=== PATIENT | male | born 1945 | race Hispanic/Latino ===

== ENCOUNTER → 2018-05-10 | Outpatient (CLI) | payer MEDICARE ==
[~2018-05-10] MED LIST: DOXAZOSIN MESYLA4 MG PO; FINASTERIDE5 MG PO; LEVOTHYROXINE88 MCG PO; SIMVASTATIN20 MG PO; ZETIA10 MG PO
--- NOTE | 2018-05-10 13:58 | Diagnostic Imaging Report ---
PROCEDURE: SOFT TISSUE HEAD/NECK US COMPARISON: None. INDICATIONS:Localized Swelling of Neck TECHNIQUE: Transverse and longitudinal jones-scale sonographic images and Doppler images of the neck were performed to evaluate the area of clinical concern. FINDINGS: Focused ultrasound of the soft tissues of the neck was performed at the area of clinical concern. No evidence of masses or lymphadenopathy in the submandibular region, bilateral neck, or thyroid gland. CONCLUSION: No sonographic abnormality identified in the neck at the area of clinical concern. Dictated by: DORIS DAWSON M.D. on 05/10/2018 at 14:05 Electronically approved by: DORIS DAWSON M.D. on 05/10/2018 at 14:05
== END ==
LOC: US 13:09
DX: R22.1 Localized swelling, mass and lump, neck (principal)
CPT/HCPCS: 76536

== ENCOUNTER → 2019-11-15 | Outpatient (CLI) | payer MEDICARE ==
--- NOTE | 2019-11-15 13:28 | Diagnostic Imaging Report ---
EXAMINATION: CHEST 2 VIEWS INDICATION: Chest pain COMPARISON: None FINDINGS: LINES/TUBES:None LUNGS:The lungs are hyperinflated. Bilateral upper lobe predominant emphysematous changes. No focal consolidation or pulmonary edema. PLEURA:No pleural effusion or pneumothorax. MEDIASTINUM:The cardiomediastinal silhouette appears normal in size and shape. Atherosclerotic calcifications of the thoracic aorta. BONES/SOFT TISSUES:No acute osseous injury. ABDOMEN:No free air under the diaphragm. IMPRESSION: Hyperinflated lungs. No focal pneumonia or pulmonary edema. Signed by: Mateo Hugo MD on 11/15/2019 1:26 PM
== END ==
LOC: RAD 11:52
DX: R07.9 Chest pain, unspecified (principal)
CPT/HCPCS: 71046